=== PATIENT | male | born 1960 | race Caucasian/White ===

== ENCOUNTER 2018-07-05 08:21 | Day surgery (SDC) | payer BC, OTHER ==
[~2018-07-05 08:21] MED LIST: LIDOCAINE HCL 1% MPF 30 SOL ONE; PROPOFOL 500 MG/50 ML EMU IV ONE
[2018-07-05 10:50] VITALS: TEMP 97.7
[2018-07-05 11:06] VITALS: BP 127/88; PULSE 64; RESP 20; O2SAT 97
== END 2018-07-05 11:24 | disposition home or self-care (01) | DRG 951 ==
LOC: SURG 08:21
PROVIDERS: ATTEND Internal Medicine Gastroenterology
DX: Z12.11 Encounter for screening for malignant neoplasm of colon (principal); D12.8 Benign neoplasm of rectum; K64.8 Other hemorrhoids
CPT/HCPCS: 99001; J2001; J2704